=== PATIENT | female | born 1990 | race Caucasian/White ===

== ENCOUNTER 2018-09-01 11:28 | Emergency (ER) | payer OTHER ==
[2018-09-01 13:59] LABS: URINE BLOOD (Dip) POC Trace-intact (NEGATIVE); URINE GLUCOSE (Dip) POC Negative (NEGATIVE); URINE KETONES (Dip) POC Negative (NEGATIVE); URINE LEUKOCYTE EST (Dip) POC Negative (NEGATIVE); URINE NITRITE (Dip) POC Negative (NEGATIVE); URINE TOTAL PROTEIN POC Trace (NEGATIVE)
[2018-09-01 13:59] LABS: URINE PH (Dip) POC 6.5 (5.0-8.5)
== END 2018-09-01 14:46 | disposition home or self-care (01) ==
LOC: FTE 11:28
DX: N76.4 Abscess of vulva (principal); B37.3 Candidiasis of vulva and vagina; T49.0X5A Adverse effect of local antifungal, anti-infective and anti-inflammatory drugs, initial encounter
CPT/HCPCS: 81003; 81025; 99283

== ENCOUNTER 2019-07-21 18:11 | Emergency (ER) | payer OTHER ==
[2019-07-21] MEDS: KETOROLAC 30 MG INJ IM (18:46)
[2019-07-21 19:04] LABS: URINE BLOOD (Dip) POC Negative (NEGATIVE); URINE GLUCOSE (Dip) POC Negative (NEGATIVE); URINE KETONES (Dip) POC Negative (NEGATIVE); URINE LEUKOCYTE EST (Dip) POC 1+ (NEGATIVE); URINE NITRITE (Dip) POC Negative (NEGATIVE); URINE TOTAL PROTEIN POC 1+ (NEGATIVE)
== END 2019-07-21 20:21 | disposition home or self-care (01) ==
LOC: FTE 18:11
DX: N39.0 Urinary tract infection, site not specified (principal)
CPT/HCPCS: 81003; 81025; 87086; 87591; 99283